=== PATIENT | female | born 1975 | race Caucasian/White ===

== ENCOUNTER 2020-09-12 18:44 | Emergency (ER) | payer OTHER ==
--- NOTE | 2020-09-12 19:22 | RAD REPORT ---
EXAM DESCRIPTION: CT - Chest Abdomen Pelvis W Cont - 09/12/2020 7:03 pm CLINICAL HISTORY: Chest and abdomen pain. abdominal pain;Chest pain COMPARISON: <Comparisons> TECHNIQUE: Approximately 100 mL nonionic IV contrast was administered to the patient. All CT scans are performed using dose optimization technique as appropriate and may include automated exposure control or mA/KV adjustment according to patient size. FINDINGS: Mild basilar lung opacities are noted likely representing mild atelectasis.No pleural or p ericardial effusion.No intrathoracic adenopathy. Fracture is present involving the superior left aspect of the sternum. There are multiple rib fractures present involving the inferior right ribs the fractures include the posterior right eleventh, and twelfth and lateral tenth ribs. The lateral content and posterior eleve nth ribs fractures are moderately displaced. There is additional fracture of the right L1, L2, L3, L4 lumbar spine transverse processes. The liver contains a vague low-density area in the right lobe posteriorly measuring 21 mm. Cholecyste ctomy clips seen. The spleen, pancreas, adrenal glands and kidneys are within normal limits. No bowel obstruction, free air, free fluid or abscess. Normal appendix. Large fat containing umbilica l hernia. No pathologic lymphadenopathy in the abdomen or pelvis. Sigmoid diverticulosis coli without diverticulitis. IMPRESSION: Fracture of the left aspect of the sternum.No mediastinal hematoma. No acute aortic abno rmality. Small inferior right lobe liver laceration. Several moderately displaced fractures inferolateral right ribs. Several mildly displaced lateral right L1-L4 transverse process fractures. Findings discussed with Dr. Grace in the ER 7:15 p.m. 09/12/2020 by telephone.
[2020-09-12 19:42] LABS: Absolute Lymphocytes (CBC) 2.1 K/uL (0.7-4.9); Basophils % 0.2 % (0-1.3); Hematocrit 37.8 % (36.0-45.0); Lymphocytes % 10.8 % (15.3-44.8); MPV 9.1 fL (7.6-11.3); RBC Red Blood Cell Count 3.94 M/uL (3.86-4.86)
[2020-09-12 19:50] LABS: Potassium 3.2 mmol/L (3.5-5.1)
[2020-09-12] MEDS ORDERED: FENTANYL CITR 100 MCG/2 ML ONE (19:56)
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
[2020-09-12 20:25] LABS: Urine Blood 1+ (Negative); Urine Glucose Negative (Negative); Urine Protein 1+ (Negative); Urine Specific Gravity 1.015 (1.005-1.030); Urine pH 6.5 (5.0-7.0)
[2020-09-12] MEDS ORDERED: POTASSIUM CL SA 10 MEQ TAB PO ONE (20:48)
[2020-09-12] MEDS ORDERED: MORPHINE 4 MG/ML SYR ONE (20:48)
[2020-09-12 21:25] VITALS: BP 133/81; TEMP 98.6; O2SAT 100
[2020-09-12] MEDS ORDERED: MORPHINE 2 MG/ML SYR ONE (21:25)
--- NOTE | 2020-09-13 13:46 | EKG ---
Test Date: 2020-09-12 Test Time: 20:11:28 Die Cast Supervisor: MEASUREMENT RESULTS: Intervals: Rate: 85 [place]: 154 QRSD: 110 QT: 384 QTc: 456 [place]: P: 27 [place]: 154 QRS: 11 T: 43 INTERPRETIVE STATEMENTS: Normal sinus rhythm Possible Left atrial enlargement Incomplete right bundle branch block Borderline ECG No previous ECG available for comparison Electronically Signed On 09-13-20 13:45:30 CDT by José Miguel Smiley
== END 2020-09-12 21:09 | disposition short-term general hospital (02) ==
LOC: ER 18:44
DX: S36.113A Laceration of liver, unspecified degree, initial encounter (principal); S22.20XA Unspecified fracture of sternum, initial encounter for closed fracture; S22.41XA Multiple fractures of ribs, right side, initial encounter for closed fracture; S32.019A Unspecified fracture of first lumbar vertebra, initial encounter for closed fracture; S32.029A Unspecified fracture of second lumbar vertebra, initial encounter for closed fracture; S32.039A Unspecified fracture of third lumbar vertebra, initial encounter for closed fracture; S32.049A Unspecified fracture of fourth lumbar vertebra, initial encounter for closed fracture; V86.69XA Passenger of other special all-terrain or other off-road motor vehicle injured in nontraffic accident, initial encounter; I10 Essential (primary) hypertension
CPT/HCPCS: 93005; 85025; 80048; 36415; 86900; 86850; 86901; 81003; 71260; 74177; 96375; 96374; 99285; Q9967; J3010; J2270; G0390